=== PATIENT | female | born 1950 | race Caucasian/White ===

== ENCOUNTER 2016-12-01 20:15 | Emergency (ER) | payer BC ==
[~2016-12-01] VITALS: Ht 162.6 cm; Wt 110.8 kg
[~2016-12-01 20:15] MED LIST: ASPIRIN EC325 MG PO; CELECOXIB200 MG PO; HYDROCODON-ACE1 EAC7 PO; IRON325 M1 PO; MOBIC15 MG PO; OMEPRAZOLE40 M1 PO; SENNA PLUS TAB1 EACH PO; TRAZODONE HCL50 MG PO; VICODIN ES 7.51 EAC1 PO; ZESTORETIC 10-1 EAC1 PO; ZOLOFT100 MG PO
[2016-12-01] MEDS ORDERED: MELOXICAM15 MG PO (20:55)
[2016-12-01 21:38] LABS: HEMATOCRIT 39.2 % (36.0-46.0); MCHC 32.7 G/DL (30.0-36.0); MCV 88.9 FL (83-99); MEAN PLAT.VOLUME 10.5 uM^3 (9.5-12.4); PLATELET COUNT 253 K/uL (156-360); RBC DIS.WIDTH-CV 13.3 % (11.8-14.6); RBC DIS.WIDTH-SD 43.8 % (39-53); RED BLOOD COUNT 4.41 M/uL (3.80-5.20); WHITE BLOOD COUNT 10.8 K/uL (4.1-10.2)
[2016-12-01 21:49] LABS: CHLORIDE 107 mEq/L (99-109); POTASSIUM 4.2 mEq/L (3.7-5.4); SODIUM 140 mEq/L (136-147)
[2016-12-01 21:51] LABS: D-DIMER ELISA 1.71 mg/L FEU (< 0.57); GLUCOSE 116 mg/dL (70-99)
[2016-12-01 21:52] LABS: ANION GAP 9 MEQ/L (2-14)
[2016-12-01 21:53] LABS: TOTAL BILIRUBIN 0.3 mg/dL (0.0-1.0)
[2016-12-01 21:55] LABS: ALKALINE PHOSPHATASE 115 IU/L (3-129); GFR ESTIMATE (CALCULATED) > 59 mL/min/
[2016-12-01 21:56] LABS: UREA NITROGEN (BUN) 35 mg/dL (9-23)
[2016-12-01 21:58] LABS: LIPASE 32 U/L (1.0-51.0)
[2016-12-01 22:01] LABS: TROP-I INTERPRETATION NEGATIVE; TROPONIN-I < 0.01 ng/mL (0.0-0.30)
[2016-12-01 23:38] LABS: TROP-I INTERPRETATION NEGATIVE; TROPONIN-I < 0.01 ng/mL (0.0-0.30)
[2016-12-02 00:21] VITALS: BP 131/80
== END 2016-12-02 00:21 | disposition home or self-care (01) ==
LOC: EME 20:15
PROVIDERS: Physician Assistant Medical
DX: S22.41XA Multiple fractures of ribs, right side, initial encounter for closed fracture (principal); W18.30XA Fall on same level, unspecified, initial encounter
CPT/HCPCS: 71275; 76705; 80053; 83690; 84484; 85027; 85379; 93005; 99281; 99285; J1885; J7030

== ENCOUNTER 2017-06-14 22:28 | Emergency (ER) | payer OTHER, BC ==
[~2017-06-14] VITALS: Ht 165.1 cm; Wt 113.6 kg
[~2017-06-14 22:28] MED LIST changes: +MELOXICAM15 MG PO
[2017-06-15 00:37] VITALS: BP 144/83
== END 2017-06-15 00:37 | disposition home or self-care (01) ==
LOC: EME 22:28
DX: S80.01XA Contusion of right knee, initial encounter (principal); W01.0XXA Fall on same level from slipping, tripping and stumbling without subsequent striking against object, initial encounter; Y92.009 Unspecified place in unspecified non-institutional (private) residence as the place of occurrence of the external cause; Z96.651 Presence of right artificial knee joint; I10 Essential (primary) hypertension
CPT/HCPCS: 73564; 73590; 99281; 99283